=== PATIENT | male | born 1940 | race Caucasian/White ===

== ENCOUNTER → 2016-11-26 | Outpatient (CLI) | payer MEDICARE ==
--- NOTE | 2016-11-26 10:09 | US ---
EXAMINATION TYPE: US venous doppler duplex UE RT DATE OF EXAM: 11/26/2016 9:41 AM COMPARISON: No previous CLINICAL HISTORY: Right hand pain and swelling. SIDE PERFORMED: Right TECHNOLOGIST IMPRESSION: Right Arm: Negative for DVT IMPRESSION: This examination is negative for DVT within the right arm.
== END | disposition home or self-care (01) ==
LOC: RADUSWWP 08:50
PROVIDERS: ATTEND Family Medicine
DX: M79.89 Other specified soft tissue disorders (principal)

== ENCOUNTER → 2016-12-05 | Outpatient (CLI) | payer MEDICARE ==
--- NOTE | 2016-12-10 13:41 | P.ARTDOP ---
Arterial Doppler Upper EXTREMITY ARTERIAL DOPPLER: DATE OF SERVICE: 12/05/2016 Reason for study: Arm swelling. Doppler waveforms: Multiphasic bilaterally throughout. Pulse volume recording: Normal including fingers. Pressure gradients: None. No right to left or segmental pressure gradients Impression: Normal upper extremity arterial Doppler.
== END | disposition home or self-care (01) ==
LOC: RADUSWWP 13:46
PROVIDERS: ATTEND Family Medicine
DX: M79.89 Other specified soft tissue disorders (principal)
CPT/HCPCS: 93923

== ENCOUNTER → 2018-04-26 | Outpatient (CLI) | payer MEDICARE ==
--- NOTE | 2018-04-27 07:42 | CT ---
EXAMINATION TYPE: CT brain wo con DATE OF EXAM: 04/26/2018 COMPARISON: NONE at this location INDICATION: Headaches x 2 weeks. History of traumatic brain injury. DLP: 1198 mGycm, Automated exposure control for dose reduction was used. CONTRAST: None CT of the brain is performed utilizing 3 mm thick sections through the posterior fossa and 3 mm thick sections through the remaining calvarium. Study is performed within 24 hours of arrival to the hosp ital. No abnormal hyperdensity is present to suggest an acute intracranial hemorrhage. There is curvilinear collection along the extra-axial space of the left frontal temporal region. A small chronic subdural hematoma with minimal mass effect on the adjacent brain may be present. This could be subdural hygro ma although density suggests underlying old hemorrhage. This has a depth of approximately 0.7 cm in m aximum depth. No mass lesion is evident. No acute infarcts are evident. Mild chronic appearing white matter changes may be present. Ventricles and sulci are prominent for the patient age. Extra-axial spaces are prominent, more so on the left than the right. No midline shift is evident. No compression of the ventricles is evident. S ignificant mass effect on the adjacent cerebrum from the chronic appearing subdural hematoma is not e vident. Paranasal sinuses and mastoid air cells within the lkand-uf-cnal are clear. IMPRESSIONS: 1. 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 Differential could include subdural hygroma which is considered less likely . 2. Atrophy with mild chronic appearing periventricular white matter ischemic type changes. A Yellow level critical message alert has been initiated for Jacey Woodson MD via the [employer] Critical Results System on 04/27/2018 7:39 AM. This message alert has been sent to Jacey chawla MD via the preferences provided by the clinician for the receipt of Radiology Critical Findings. Message ID [id number].
== END | disposition home or self-care (01) ==
LOC: RADCTMAIN 17:35
PROVIDERS: ATTEND Family Medicine
DX: G31.9 Degenerative disease of nervous system, unspecified (principal); R90.89 Other abnormal findings on diagnostic imaging of central nervous system; Z87.820 Personal history of traumatic brain injury
CPT/HCPCS: 70450

== ENCOUNTER 2018-06-11 19:50 | Emergency (ER) | payer MEDICARE ==
[2018-06-11 20:25] VITALS: TEMP 98.3
[2018-06-11 21:20] LABS: Basophils % (A) 1 %; Eosinophils # (A) 0.1 k/uL (0-0.7); Eosinophils % (A) 2 %; HCT 43.9 % (39.0-53.0); HGB 15.2 gm/dL (13.0-17.5); Lymphocytes # (A) 1.8 k/uL (1.0-4.8); Lymphocytes % (A) 24 %; MCH 32.5 pg (25.0-35.0); MCHC 34.6 g/dL (31.0-37.0); MCV 93.9 fL (80.0-100.0); Mean Platelet Volume 6.4; Monocytes # (A) 0.6 k/uL (0-1.0); Monocytes % (A) 8 %; Neutrophils # (A) 4.9 k/uL (1.3-7.7); Neutrophils % (A) 64 %; Platelet Count 271 k/uL (150-450); RBC 4.67 m/uL (4.30-5.90); RDW 12.9 % (11.5-15.5); WBC 7.6 k/uL (3.8-10.6)
[2018-06-11 21:35] LABS: ALT 26 U/L (21-72); AST 27 U/L (17-59); Albumin 3.4 g/dL (3.5-5.0); Alkaline Phosphatase 65 U/L (38-126); Anion Gap 5 mmol/L; Blood Urea Nitrogen 19 mg/dL (9-20); Calcium 8.8 mg/dL (8.4-10.2); Carbon Dioxide 27 mmol/L (22-30); Chloride 102 mmol/L (98-107); Glucose 134 mg/dL (74-99); Potassium 3.9 mmol/L (3.5-5.1); Sodium 134 mmol/L (137-145); Total Bilirubin 0.6 mg/dL (0.2-1.3); Total Protein 5.6 g/dL (6.3-8.2)
--- NOTE | 2018-06-11 22:34 | CT ---
EXAMINATION TYPE: CT brain cspine wo con DATE OF EXAM: 06/11/2018 COMPARISON: Head CT scan 04/26/2018 HISTORY: fall, confusion, ams CT DLP: 1830 mGycm Automated exposure control for dose reduction was used. TECHNIQUE: CT scan of the head and cervical spine are performed without contrast. FINDINGS: There is widening of the subdural space over the left cerebral hemisphere consistent with acute and chronic subdural hemorrhage. There is mixed density fluid. This measures up to 2 cm in thi ckness. There is slight midline shift. Midline is shifted approximately 8 mm. There is some effacemen t of the occipital horn of the left lateral ventricle. The cervical vertebra have normal alignment. There is degenerative disc space narrowing at C4-5 C5-6 C6-7 with spurring of the endplates. Facet joints are intact. The skull base is intact. 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 There is midline shift of 8 mm. There are spondylotic changes in the cervical spine. No fracture seen. This exam was discussed with Dr. Holguin at 10:30 PM.
[2018-06-11 22:48] VITALS: BP 122/69; PULSE 82; RESP 18
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
[2018-06-11 22:53] LABS: Creatine Kinase 137 U/L (55-170); INR 1.2 (<1.2); Partial Thromboplastin Time 23.3 sec (22.0-30.0); Prothrombin Time 11.4 sec (9.0-12.0)
--- NOTE | 2018-06-11 23:05 | XR ---
EXAMINATION TYPE: XR chest 1V portable DATE OF EXAM: 06/11/2018 COMPARISON: NONE HISTORY: Chest pain TECHNIQUE: Single frontal view of the chest is obtained. FINDINGS: Heart and mediastinum are within normal limits for age. Lungs are clear. There is no sign of pleural effusion or pneumothorax. Costophrenic angles are clear. The bony thorax appears intact. IMPRESSION: No active cardiopulmonary disease.
--- NOTE | 2018-06-11 23:06 | XR ---
EXAMINATION TYPE: XR pelvis AP view DATE OF EXAM: 06/11/2018 COMPARISON: NONE HISTORY: Pain after falling TECHNIQUE: Single view FINDINGS: Pelvic ring is intact. Proximal femurs and hip joints are intact. Sacroiliac joints are int act. IMPRESSION: Normal pelvis
[2018-06-11 23:07] LABS: Creatine Kinase MB 1.2 ng/mL (0.0-2.4); Troponin I <0.012 ng/mL (0.000-0.034)
== END 2018-06-11 23:20 | disposition other institution (70) ==
LOC: EC 19:50
DX: S06.5X9A Traumatic subdural hemorrhage with loss of consciousness of unspecified duration, initial encounter (principal); E78.5 Hyperlipidemia, unspecified; N42.9 Disorder of prostate, unspecified; Z87.891 Personal history of nicotine dependence; Z79.899 Other long term (current) drug therapy; Z88.2 Allergy status to sulfonamides; V19.9XXA Pedal cyclist (driver) (passenger) injured in unspecified traffic accident, initial encounter; Y93.55 Activity, bike riding; Y92.009 Unspecified place in unspecified non-institutional (private) residence as the place of occurrence of the external cause
CPT/HCPCS: 36415; 70450; 71045; 72125; 72170; 80053; 80320; 82550; 82553; 84484; 85025; 85610; 85730; 86850; 86900; 86901; 93005; 99285

== ENCOUNTER 2018-06-30 08:49 | Emergency (ER) | payer MEDICARE ==
[2018-06-30] MEDS ORDERED: SODIUM CHLORIDE 0.9% 1,000 ML IV STA (08:55)
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
[2018-06-30 09:26] LABS: Basophils % (A) 0 %; Eosinophils # (A) 0.2 k/uL (0-0.7); Eosinophils % (A) 1 %; HGB 14.4 gm/dL (13.0-17.5); Lymphocytes # (A) 1.1 k/uL (1.0-4.8); Lymphocytes % (A) 8 %; MCH 31.5 pg (25.0-35.0); MCHC 33.5 g/dL (31.0-37.0); Mean Platelet Volume 6.8; Monocytes # (A) 0.7 k/uL (0-1.0); Monocytes % (A) 5 %; Neutrophils # (A) 11.3 k/uL (1.3-7.7); Neutrophils % (A) 85 %; Platelet Count 279 k/uL (150-450); RBC 4.58 m/uL (4.30-5.90); RDW 12.5 % (11.5-15.5); WBC 13.4 k/uL (3.8-10.6)
[2018-06-30 09:28] VITALS: RESP 18
[2018-06-30 09:35] LABS: ALT 25 U/L (21-72); AST 25 U/L (17-59); Albumin 3.4 g/dL (3.5-5.0); Alkaline Phosphatase 70 U/L (38-126); Amylase 62 U/L (30-110); Anion Gap 8 mmol/L; Blood Urea Nitrogen 18 mg/dL (9-20); Calcium 8.6 mg/dL (8.4-10.2); Carbon Dioxide 26 mmol/L (22-30); Chloride 102 mmol/L (98-107); Glucose 99 mg/dL (74-99); INR 1.2 (<1.2); Lipase 121 U/L (23-300); Magnesium 1.9 mg/dL (1.6-2.3); Potassium 4.3 mmol/L (3.5-5.1); Prothrombin Time 11.2 sec (9.0-12.0); Sodium 136 mmol/L (137-145); Total Bilirubin 1.1 mg/dL (0.2-1.3); Total Protein 5.6 g/dL (6.3-8.2)
[2018-06-30 09:48] LABS: Creatine Kinase 23 U/L (55-170)
[2018-06-30 10:01] LABS: Creatine Kinase MB 0.4 ng/mL (0.0-2.4); Troponin I <0.012 ng/mL (0.000-0.034)
--- NOTE | 2018-06-30 10:09 | XR ---
EXAMINATION TYPE: XR chest 2V DATE OF EXAM: 06/30/2018 COMPARISON: 06/11/2018 HISTORY: 78-year-old male syncope TECHNIQUE: AP and lateral views FINDINGS: Heart upper limits of normal in size. Aorta and bony vasculature are within normal limits. No consoli dation or pleural effusion. IMPRESSION: Heart upper limits of normal in size. No acute process seen.
--- NOTE | 2018-06-30 10:13 | CT ---
EXAMINATION TYPE: CT brain wo con DATE OF EXAM: 06/30/2018 HISTORY: Syncopal episode today. History of recent subdural hematoma CT DLP: 1121 mGycm. Automated Exposure Control for Dose Reduction was Utilized. TECHNIQUE: CT scan of the head is performed without contrast. COMPARISON: CT brain June 11, 2018 and older study April 26, 2018. FINDINGS: There is interval surgery with new left frontal craniotomy changes noted. There is new pneumocephalus presumed related to surgery. There is persistent heterogeneous extra-axial fluid colle ction with linear hyperdensity causing mass effect on the frontal lobe. There is interval improvement along the posterior aspect. There is persistent midline shift at level of septum pellucidum measured up to 5 mm axial image 25 felt slightly diminished from prior. Frontal horns and third ventricle are slightly more prominent versus most recent prior. There is background mild to moderate diffuse cereb ral atrophy most prominent over right frontal lobe redemonstrated. Pneumocephalus extends to right of midline anteriorly axial image 18. IMPRESSION: Interval left-sided surgery. Persistent complex extra-axial hypodensity with linear hyper density likely reflects combination of residual or recurrent acute on chronic hemorrhage and less lik thony surgical material. New pneumocephalus presumed postsurgical. Interval slight improvement in right -sided mediastinal shift. Background mild to moderate diffuse cerebral atrophy. New mild to minimal h ydrocephalus. Case discussed with ordering ER physician via telephone at time of dictation.
[2018-06-30] MEDS ORDERED: ACETAMINOPHEN TAB 500 MG TAB PO STA (11:14)
[2018-06-30 11:36] VITALS: BP 128/76; PULSE 79; TEMP 100.5
== END 2018-06-30 11:31 | disposition other institution (70) ==
LOC: EC 08:49
DX: S06.5X9D Traumatic subdural hemorrhage with loss of consciousness of unspecified duration, subsequent encounter (principal); R40.2412 Glasgow coma scale score 13-15, at arrival to emergency department; E78.5 Hyperlipidemia, unspecified; N42.9 Disorder of prostate, unspecified; Z87.891 Personal history of nicotine dependence; Z79.899 Other long term (current) drug therapy; Z88.2 Allergy status to sulfonamides; V18.9XXD Unspecified pedal cyclist injured in noncollision transport accident in traffic accident, subsequent encounter
CPT/HCPCS: 36415; 70450; 71046; 80053; 82150; 82550; 82553; 83690; 83735; 84484; 85025; 85610; 85730; 93005; 99291

== ENCOUNTER → 2018-07-20 | Outpatient (CLI) | payer MEDICARE ==
--- NOTE | 2018-07-21 07:50 | CT ---
EXAMINATION TYPE: CT brain wo con DATE OF EXAM: 07/20/2018 COMPARISON: 06/30/2018 INDICATION: Follow up scan per patient DLP: 1219 mGycm, Automated exposure control for dose reduction was used. CONTRAST: None CT of the brain is performed utilizing 3 mm thick sections through the posterior fossa and 3 mm thick sections through the remaining calvarium. Study is performed within 24 hours of arrival to the hosp ital. There is a small crescent of subdural hyperdensity of the larger area of hypodensity compatible with resolving subdural hematoma below the patient's left parietal craniotomy. New interval hemorrhage is not identified. Maximum depth which has some mass effect on the adjacent brain is 1.8 cm. This is dim inished from the 2.2 cm. No mass lesion is evident. No midline shift is evident. There is effacement of sulci along the left p arietal lobe adjacent to the extradural collection. Remaining sulci are normal. No effacement of the lateral ventricles is evident. Third ventricle and fourth ventricle are midline. No acute infarcts are evident. Paranasal sinuses and mastoid air cells within the [id number] are clear. IMPRESSIONS: 1. Residual subdural hematoma left parietal region. There appears to be normal maturation with slig ht diminished size compared to June 30, 2018. 2. Mass effect remains on the left cerebral hemisphere without midline shift or ventricular compressi on.
== END | disposition home or self-care (01) ==
LOC: RADCTMAIN 17:04
PROVIDERS: ATTEND Neurological Surgery
DX: S06.5X9A Traumatic subdural hemorrhage with loss of consciousness of unspecified duration, initial encounter (principal); G93.89 Other specified disorders of brain
CPT/HCPCS: 70450

== ENCOUNTER → 2018-12-18 | Outpatient (CLI) | payer MEDICARE ==
--- NOTE | 2018-12-20 11:24 | MR ---
EXAMINATION TYPE: MR brain wo/w con DATE OF EXAM: 12/18/2018 COMPARISON: Correlation CT 07/20/2018 HISTORY: 78-year-old male with nonspecified convulsions, seizures. TECHNIQUE: Multiplanar, multisequence images of the brain and brainstem were acquired before and aft er administration of 10 mL IV Gadavist. Diffusion weighted imaging is performed. FINDINGS: Left frontal and left frontoparietal skylar holes. There is moderate generalized cerebral cortical atrophy. Residual subdural hematoma along the entire left lateral convexity extending from front to back. This shows significant interval decrease in size now measuring 8 mm thick versus 1.8 cm on 07/20/2018. Thi s shows low to intermediate T1-weighted signal and mixed linear dark or bright T2-weighted signal. Small foci of restricted diffusion within the extra-axial collection. There is also some gyriform low T2 signal along the left frontal lobe suggesting hemosiderosis. Persistent mild mass effect onto the left cerebral hemisphere causes some asymmetric gyral crowding b ut overall mass effect is improved from 07/20/2018 CT. No midline shift, herniation, or effacement of basal cisterns. Otherwise, no suspicious restricted di ffusion within the brain parenchyma itself. No hydrocephalus. The right vertebral artery flow-void is dominant. The left vertebral artery may terminate as a claim representative ior inferior cerebellar artery. 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 Symmetric and preserved hippocampal volume. T2/FLAIR weighted sequences show mild scattered bright white matter change in the periventricular and subcortical regions of both cerebral hemispheres, numbering approximately 5-10 on the left and 5 on the right. There is partially empty sella. Otherwise, midline structures demonstrate normal morphology. 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 Post contrast images demonstrate some reactive dural enhancement along the left convexity but otherwi se no evidence of pathologic enhancement. Dural venous sinuses are patent. Mild mucosal thickening ethmoid air cells and maxillary sinuses. Globes are intact. IMPRESSION: 1. The patient's subdural hematoma along the left lateral convexity shows decrease in size from 2017 now measuring 8 mm thick versus 1.8 cm, previously. There has also been decrease in the amount o f mass effect onto the underlying cerebral hemisphere. No midline shift or herniation. 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 2. The hematoma itself has mixed signal intensity. The presence of bright T2 signal is favored to rep resent a component of late subacute blood products. As no interval imaging is available from the sandra ent's 07/20/2018 CT, a recurrent, more acute subdural hematoma is difficult to exclude. Consider follo w-up CT to assess overall density of the hematoma and exclude superimposed acute component. 3. Otherwise, there is moderate atrophy and mild changes of chronic small vessel ischemic disease. No other acute intracranial abnormality seen. 4. Dominant right vertebral artery. The left vertebral artery may terminate as a PICA. The basilar ar memo is relatively small in caliber which is of questionable clinical significance but may potentiall y contribute to symptoms of vertebrobasilar insufficiency.
== END ==
LOC: RADMRIMAIN 10:47
PROVIDERS: ATTEND Psychiatry & Neurology Neurology
DX: S06.5X9A Traumatic subdural hemorrhage with loss of consciousness of unspecified duration, initial encounter (principal); G31.9 Degenerative disease of nervous system, unspecified; N28.9 Disorder of kidney and ureter, unspecified; Z01.812 Encounter for preprocedural laboratory examination
CPT/HCPCS: 82565; 70553; 36415; A9585

== ENCOUNTER → 2019-01-10 | Outpatient (CLI) | payer MEDICARE ==
--- NOTE | 2019-01-10 16:40 | CT ---
EXAMINATION TYPE: CT brain wo con DATE OF EXAM: 01/10/2019 COMPARISON: 07/20/2018 INDICATION: Nontraumatic subdural hemorrhage, possible seizure. Follow up study. DLP: 1150 mGycm, Automated exposure control for dose reduction was used. CONTRAST: None CT of the brain is performed utilizing 3 mm thick sections through the posterior fossa and 3 mm thick sections through the remaining calvarium. Study is performed within 24 hours of arrival to the hosp ital. No abnormal hyperdensity is present to suggest an acute intracranial hemorrhage. There appears to be a subacute subdural hematoma along the left. This has a maximum depth of 0.4 cm. No midline shift is evident. No subfalcine herniation is evident. No mass lesion is evident. No acute infarcts are evident. Ventricles and sulci are appropriate for the patient age. Paranasal sinuses and mastoid air cells within the fujet-tx-wraj are clear. IMPRESSIONS: 1. Significantly diminished left parietal subdural hematoma with small residual remaining.
== END | disposition home or self-care (01) ==
LOC: RADCTMAIN 11:06
PROVIDERS: ATTEND Psychiatry & Neurology Neurology
DX: I62.00 Nontraumatic subdural hemorrhage, unspecified (principal)
CPT/HCPCS: 70450

== ENCOUNTER → 2020-12-07 | Outpatient (CLI) | payer MEDICARE ==
[2020-12-07 08:34] LABS: INR 1.2 (<1.2); Prothrombin Time 12.3 sec (9.0-12.0)
[2020-12-07 08:36] LABS: Basophils % (A) 1 %; Eosinophils # (A) 0.2 k/uL (0-0.7); Eosinophils % (A) 2 %; HCT 53.4 % (39.0-53.0); HGB 17.2 gm/dL (13.0-17.5); Lymphocytes # (A) 1.8 k/uL (1.0-4.8); Lymphocytes % (A) 30 %; MCH 32.4 pg (25.0-35.0); MCHC 32.3 g/dL (31.0-37.0); MCV 100.4 fL (80.0-100.0); Mean Platelet Volume 7.3; Monocytes # (A) 0.4 k/uL (0-1.0); Monocytes % (A) 6 %; Neutrophils # (A) 3.5 k/uL (1.3-7.7); Neutrophils % (A) 58 %; Platelet Count 217 k/uL (150-450); RBC 5.32 m/uL (4.30-5.90)
[2020-12-07 08:46] LABS: Calcium 9.5 mg/dL (8.4-10.2); Potassium 4.9 mmol/L (3.5-5.1); Total Protein 6.4 g/dL (6.3-8.2)
== END | disposition home or self-care (01) ==
LOC: LABPAT 07:51
PROVIDERS: ATTEND Orthopaedic Surgery
DX: Z01.818 Encounter for other preprocedural examination (principal); M17.12 Unilateral primary osteoarthritis, left knee; Z01.812 Encounter for preprocedural laboratory examination
CPT/HCPCS: 36415; 80053; 85025; 85610; 87070; 93005

== ENCOUNTER 2020-12-25 06:15 | Day surgery (SDC) | payer MEDICARE ==
[2020-12-19 13:39] VITALS: BMI 23.1
--- NOTE | 2020-12-24 09:07 | HP ---
HISTORY AND PHYSICAL CHIEF COMPLAINT: Left knee pain. HISTORY OF PRESENT ILLNESS: The patient is a 80-year-old retired male who presents with left knee pain for the past several years, worsening recently. He notes lateral pain that increases with walking and getting up from a seated position. It bothers him daily. He rates his pain 6/10 intermittently. He has tried medications in addition to previous injections with only partial temporary relief. PAST MEDICAL HISTORY: Significant for arthritis and hypercholesterolemia along with chronic low back pain. PAST SURGICAL HISTORY: Significant for appendectomy, hernia repair, and tonsillectomy. CURRENT MEDICATIONS: 1. Keppra. 2. Simvastatin. ALLERGIES: He has allergies to SULFA. FAMILY HISTORY: Significant for heart disease. SOCIAL HISTORY: Significant for previous tobacco use. REVIEW OF SYSTEMS: Sixteen-point review of systems otherwise reviewed and is noncontributory. PHYSICAL EXAMINATION: On examination, the patient is approximately 6 feet 1 inch, 175 pounds of mesomorphic habitus. HEENT exam is nonfocal. Neck is supple. He has painless passive motion of his left hip. Straight leg raise is negative. Active motion left knee -12 to 110 degrees of flexion. He has a mild effusion. He is tender about the lateral joint line. Collaterals are stable, Mariam is negative, Alissa's is equivocal. He has genu valgum alignment. His distal neurovascular exam appears intact in the left lower extremity. Previous x-rays of the left knee obtained in the office show severe lateral compartment narrowing with subchondral sclerosis and joint space narrowing. There is also osteophyte formation. 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 RECOMMENDATIONS: I talked to the patient at length regarding his condition and treatment options. At this point, he remains quite symptomatic and limited despite previous conservative measures. After thorough discussion, he opts to proceed with surgery. We will plan to proceed with left total knee arthroplasty. We will institute DVT prophylaxis postoperatively. MMODL / IJN: [id number] /
[~2020-12-25 06:15] MED LIST: ACETAMINOPHEN TAB 500 MG TAB PO PRN; DEXAMETHASONE SOD PHOSPHATE 4 MG/ML 1 ML VIAL IV ONE; MELOXICAM 7.5 MG TAB PO PRN; MIDAZOLAM 2 MG/2 ML VIAL IV PRN; ONDANSETRON 4 MG/2 ML VIAL IVP ONE; ROPIVACAINE/EPI/CLONIDINE/KET 50 ML SYRINGE MISCELLANE PRN; TRANEXAMIC ACID 1,000 MG in SODIUM CHLORIDE 0.9% 100 ML IVPB PRN
[2020-12-25] MEDS: LACTATED RINGERS 1,000 ML IV SCH (06:52)
[2020-12-25] MEDS ORDERED: HYDROmorphone 0.5 MG/0.5 ML SYRINGE IVP PRN ×2 (07:00→09:55)
[2020-12-25] MEDS ORDERED: fentaNYL (PF) 50 MCG/ML 2 ML AMP IVP ONE (07:10)
[2020-12-25] MEDS ORDERED: MIDAZOLAM 2 MG/2 ML VIAL IVP ONE (07:10)
[2020-12-25] MEDS ORDERED: ROPIVACAINE 0.2%-NS ON-Q PUMP 1,090 MG, EMPTY PAIN BALL 1 EACH MISCELLANE PRN (07:24)
--- NOTE | 2020-12-25 07:26 | P.ANPRN ---
Procedure Note - Anesthesia - Nerve Block Performed Left Adductor Canal Infusion Time Out Performed: Yes Date of Procedure: 12/25/20 Procedure Start Time: 07:09 Procedure Stop Time: 07:17 Location of Patient: PreOp Indication: Requested by Surgeon Specifically requested for management of pain by DrLeeann: Kory Alford Sedation Type: Sedate with meaningful contact maintained Preparation: Sterile Prep, Sterile Dressing Position: Supine Catheter: Indwelling Needle Types: Pajunk Needle Gauge: 20 Ultrasound used to visualize needle placement: Yes Ultrasound used to observe medication spread: Yes Injectate: 0.5% Ropivacaine (see comment for volume) (20 ml) Blood Aspirated: No Pain Paresthesia on Injection Noted: No Resistance on Injection: Normal Image Stored and Saved: Yes Events: Uneventful and Well Tolerated
[2020-12-25] MEDS ORDERED: PROPOFOL 10 MG/ML 20 ML VIAL IV ONE (07:46)
[2020-12-25] MEDS ORDERED: SODIUM CHLORIDE 0.9% 100 ML BAG ONE (07:46)
[2020-12-25] MEDS ORDERED: TRANEXAMIC ACID 1,000 MG/10 ML VIAL ONE (07:46)
[2020-12-25] MEDS ORDERED: fentaNYL (PF) 50 MCG/ML 2 ML AMP ONE (07:46)
[2020-12-25] MEDS ORDERED: MIDAZOLAM 2 MG/2 ML VIAL ONE (07:46)
[2020-12-25] MEDS ORDERED: HYDROmorphone 1 MG/ML 1 ML SYRINGE IVP PRN (09:55)
[2020-12-25] MEDS ORDERED: HYDROcodone/APAP 5-325MG 1 EACH TAB PO PRN (09:55)
[2020-12-25] MEDS ORDERED: ONDANSETRON 4 MG/2 ML VIAL IVP PRN (09:55)
[2020-12-25] MEDS ORDERED: NALOXONE 0.4 MG/ML 1 ML VIAL IV PRN (09:55)
[2020-12-25] MEDS ORDERED: hydrOXYzine pamoate 25 MG CAP PO PRN (09:55)
--- NOTE | 2020-12-25 09:55 | P.OP ---
Date of Procedure: 12/25/20 Preoperative Diagnosis: Left knee severe tricompartmental osteoarthrosis Postoperative Diagnosis: Same Procedure(s) Performed: Left total knee arthroplastycruciate retainingcemented Implants: Depuy to size 7 cemented femoral component, size 7 cemented tibial component, 9 mm articular surface, 35 mm cemented patellar component. This was a cruciate retaining implant. Anesthesia: regional, local, spinal Surgeon: Kory Alford Pathology: other (Bone fragments) Condition: stable Disposition: PACU Indications for Procedure: The patient's 80-year-old male who presents with persistent/progressive left knee pain secondary osteoarthrosis despite conservative treatment. A discussion of the risks and benefits of operative intervention versus continued conservative measures was made with patient. He opted to proceed with surgery. Operative risks to include infection, neurovascular injury, development of blood clots, possible component loosening, possible component failure need for subsequent procedures was discussed. Informed consent was obtained. Operative Findings: As below Description of Procedure: The patient was brought to the operating room, and after induction of spinal anesthesia the left lower extremity was prepped and draped in a normal fashion. The tourniquet was inflated to 270 mmHg. A longitudinal incision extending 3 finger breaths above the superior pole of the patella extending to the medial aspect the tibial tubercle was then made. The skin and subcutaneous tissues were divided sharply. Electrocautery was used for hemostasis. A medial parapatellar arthrotomy was then performed. The medial soft tissues to include the superficial and deep portions of the medial collateral ligament as well as the medial hamstring tendons were elevated subperiosteally. The proximal medial tibia osteophytes were carefully removed. The patella was everted. The knee was flexed. A portion of the retropatellar fat pad was excised sharply. The anterior cruciate ligament was sacrificed. A starting hole was made in the distal femur 1 cm anterior to the posterior cruciate origin. An intramedullary femoral guide was gently inserted planning on 5 valgus distal cut with 9 mm distal resection. The cutting block was pinned in place. The distal cut was then made. The posterior referencing sizing guide was utilized. 3 of external rotation was built into the system and verified off the trans- epicondylar axis and the posterior condyles. I felt size 7 was most appropriate. The cutting block was pinned in place. The anterior, posterior, and chamfer cuts were then made. The bone fragments were removed. A sulcus cut was then made with the appropriate guide. The trial size 7 femoral component was then placed and was fully seated. There was good anterior to posterior and medial to lateral fit. The distal peg holes were then drilled. The trial component was then removed. Attention was then paid towards preparing the proximal tibia. An extra medullary guide was utilized in line with the tibial shaft and second metatarsal distally. A 7 posterior slope was planned. I planned on 2 mm resection from the medial compartment. The cutting block was pinned in place. The proximal tibial cut was then made. The bone was removed in one fragment. The remnants of the medial and lateral menisci were excised the capsule junction with electrocautery. The tibia sized most appropriately at size 7. The posterior osteophytes off the distal femur were carefully removed with a curved osteotome. The trial tibial and femoral components were placed along with a 9 millimeters articular surface. I was able to obtain full flexion and extension with good stability with varus and valgus stress. After several flexion and extension cycles, the tibial rotation was marked with electrocautery in line with the medial one third of the tibial tubercle. Attention was then paid towards preparing the patella. A patella reamer was utilized taking this down to 14 mm of bone stock. A good flush cut was made. The patella sized most appropriately at 35 millimeters. The peg holes were then drilled. The trial component was placed. The knee was taken through a range of motion. I had good patellofemoral tracking with no hands technique. The trial components were then removed. The tibia was prepared in the appropriate rotation with appropriate drill and keel punch. The flexion and extension gaps were checked and felt to be symmetric. The posterior soft tissues were injected with ropivacaine. The bony surfaces were prepared with pulsatile lavage and dried. The deep tibial component was then cemented in place and was fully seated. Excess cement was removed. The femoral component was cemented in place and was fully seated. Again excess cement was removed. The trial 9 millimeters surface was then inserted in the knee was put in full extension. The patella component was cemented in place. After the cement had sufficiently hardened, the knee was again taken through a range of motion. Again there was good stability in flexion and extension with varus and valgus stress. The trial articular surface was then removed. The final articular surface was placed and was impacted. Care was taken to avoid any soft tissue interposition. Pulsatile lavage was again utilized. The tourniquet was deflated with approximately 60 minutes total tourniquet time. There was minimal drainage therefore a deep drain was not placed. The medial parapatellar arthrotomy was then closed with #2 Ethibond suture. The subcutaneous tissues were reapproximated interrupted 2-0 Vicryl sutures. The skin was reapproximated with 3-0 subarticular strata fix suture. Skin tape and adhesive was applied. A sterile dressing was applied. The patient was then awoken from sedation and transferred to recovery room in good condition. Blood loss was estimated at 50 milliliters. No complications were incurred. Sponge and needle counts were correct at the end the case.
--- NOTE | 2020-12-25 10:34 | XR ---
EXAMINATION TYPE: XR knee limited LT DATE OF EXAM: 12/25/2020 CLINICAL HISTORY: Postoperative evaluation Two views of the left knee are submitted. Identified are changes of total knee arthroplasty with fem oral and tibial components appearing well seated. Postsurgical soft tissue changes are noted. Align ment is anatomic.
--- NOTE | 2020-12-25 13:21 | P.CONS ---
History of Present Illness - Reason for Consult Consult date: 12/25/20 - History of Present Illness Adi Carter, is a 80-year-old male patient of Dr. post, who was admitted to [facility] by Dr. Alford, for advanced osteoarthritis of the left knee patient underwent left total knee arthroplasty today he was admitted to the surgical floor post surgery medical consultation was requested for management while hospitalized. Patient has a known history of seizure disorder, benign prostatic hypertrophy, hyperlipidemia, and history of Rajendra polymyalgia rheumatica. On review of systems patient is alert and oriented 3 in no apparent distress he denies any fever or chills no headache or dizziness no chest pain no shortness of breath no cough no nausea or vomiting no abdominal pain no diarrhea no blood in the stools no burning with urination no frequency or urgency and no hematuria. Past Medical History Past Medical History: Eye Disorder, Hyperlipidemia, Prostate Disorder Additional Past Medical History / Comment(s): hx of brain bleed, no hx of seizured, glaucoma History of Any Multi-Drug Resistant Organisms: None Reported Past Surgical History: Appendectomy, Hernia Repair, Tonsillectomy Additional Past Surgical History / Comment(s): sx for subdural hematoma [facility] 2017, carlos cataracts, epidural for pain in past Past Anesthesia/Blood Transfusion Reactions: No Reported Reaction Additional Past Alcohol Use History / Comment(s): smoking: started 1958 stopped 1965 - Past Family History Mother Family Medical History: No Reported History Father Family Medical History: AICD/Pacemaker, Congestive Heart Failure (CHF), Coronary Artery Disease (CAD) Additional Family Medical History / Comment(s): at 58 in 1973 from chf Medications and Allergies Home Medications Medication Instructions Recorded Confirmed Type Latanoprost Ophth [Xalatan 0.005%] 1 drops BOTH EYES HS 06/11/18 12/25/20 History Simvastatin [Zocor] 20 mg PO HS 06/30/18 12/25/20 History Vit C/E/Zn/Coppr/Lutein/Zeaxan 1 cap PO BID 06/30/18 12/25/20 History [Preservision Areds 2 Softgel] levETIRAcetam [Keppra] 500 mg PO Q12HR 06/30/18 12/25/20 History Cholecalciferol (Vitamin D3) 125 mcg PO DAILY 12/19/20 12/25/20 History [Vitamin D3 (5000 Iu)] Framingham-3 Fatty Acids/Fish Oil [Fish 1 each PO DAILY 12/19/20 12/25/20 History Oil 1,000 mg Softgel] Allergies Allergy/AdvReac Type Severity Reaction Status Date / Time Sulfa (Sulfonamide Allergy Rash/Hives Verified 12/25/20 06:38 Antibiotics) Physical Exam Vitals: Vital Signs Temp Pulse Resp BP Pulse Ox 12/25/20 10:30 63 16 93/52 97 12/25/20 10:15 73 16 99/52 96 12/25/20 10:02 71 16 101/55 96 12/25/20 09:51 96.8 F L 72 16 99/56 95 12/25/20 07:33 64 16 126/69 97 12/25/20 06:45 97.5 F L 68 16 145/78 98 Intake and Output 12/24/20 12/25/20 12/25/20 22:59 06:59 14:59 Intake Total 400 700 Output Total 50 Balance 400 650 Intake: IV 400 700 Output: Estimated Blood Loss 50 Other: Weight 79.379 kg In general patient is alert and oriented 3 in no apparent distress HEENT head normocephalic and atraumatic Neck is supple no JVD no goiter no lymphadenopathy Chest exam reveals crackles in both lung bases no wheezing Cardiac exam reveals regular heart sounds S1 and S2 no gallops no murmurs Abdomen is soft nontender no organomegaly with normal bowel sounds Extremity exam reveals no edema no cyanosis or clubbing Neurological examination reveals, no gross focal neurological deficits Assessment and Plan Plan: 1. Advanced osteoarthritis laft knee, status post left total knee arthroplasty today by Dr Alford 2. Underlying history of seizure disorder maintained on Keppra 3. Underlying history of hyperlipidemia maintained on Zocor 4. Underlying history of benign prostatic hypertrophy 5. Underlying history of polymyalgia rheumatica At this time home medications reviewed and reordered DVT prophylaxis and pain management as per orthopedic protocol patient was started on oral Xarelto Will follow during this admission for medical management
[2020-12-25] MEDS: VIT A,C & E-LUTEIN-MINERALS 1 EACH TAB PO SCH (19:54)
[2020-12-25] MEDS: levETIRAcetam 500 MG TAB PO SCH (19:54)
[2020-12-25] MEDS ORDERED: LATANOPROST 0.005% OPHTH DROPS 2.5 ML BTL BOTH EYES SCH (21:00)
[2020-12-25] MEDS ORDERED: ATORVASTATIN 10 MG TAB PO SCH (21:00)
--- NOTE | 2020-12-26 06:36 | P.PN ---
Progress Note - Text Progress Note Date: 12/26/20 Patient was seen at bedside at 620 AM. Patient is postop day 1 from rleft total knee replacement with adductor canal catheter placed for pain . Ropivacaine 0.2% infusion running at 8 ml per hour. VAS score is 4. Patient denies side effects. Lower extremity sensation and motor function is intact. Patient has ambulated. Dressing clean dry and intact over catheter site
[2020-12-26] MEDS: LACTATED RINGERS 1,000 ML IV SCH (06:56)
[2020-12-26 07:26] VITALS: RESP 18
[2020-12-26] MEDS: levETIRAcetam 500 MG TAB PO SCH (08:11)
[2020-12-26] MEDS: VIT A,C & E-LUTEIN-MINERALS 1 EACH TAB PO SCH (08:11)
[2020-12-26] MEDS: HYDROcodone/APAP 7.5-325MG 1 EACH TAB PO PRN ×2 (08:11→13:48)
[2020-12-26] MEDS ORDERED: NON FORMULARY DRUG (Omega-3 Fatty Acids/Fish Oil [Fish Oil 1,000 Mg Softgel] 1 EACH Capsul PO SCH (09:00)
[2020-12-26] MEDS ORDERED: PSYLLIUM HUSK 100% 6 GM PACKET PO SCH (09:00)
[2020-12-26] MEDS ORDERED: CHOLECALCIFEROL 25 MCG (1000 IU) TABLET PO SCH (09:00)
[2020-12-26] MEDS ORDERED: RIVAROXABAN 10 MG TAB PO SCH (09:00)
[2020-12-26 09:10] LABS: Basophils # (A) 0.03 X 10*3/uL (0.00-0.10); Basophils % (A) 0.2 %; Eosinophils # (A) 0.06 X 10*3/uL (0.04-0.35); Eosinophils % (A) 0.4 %; HCT 44.5 % (39.6-50.0); HGB 15.2 g/dL (13.0-17.0); Lymphocytes # (A) 2.17 X 10*3/uL (0.90-5.00); Lymphocytes % (A) 16.2 %; MCH 32.3 pg (27.0-32.0); MCHC 34.2 g/dL (32.0-37.0); MCV 94.7 fL (80.0-97.0); Mean Platelet Volume 11.6 fL (9.5-12.2); Monocytes # (A) 1.19 X 10*3/uL (0.20-1.00); Monocytes % (A) 8.9 %; Neutrophils # (A) 9.86 X 10*3/uL (1.80-7.70); Neutrophils % (A) 73.9 %; Platelet Count 239 X 10*3/uL (140-440); RDW 12.4 % (11.5-14.5); WBC 13.36 X 10*3/uL (4.50-10.00)
[2020-12-26 10:04] LABS: African American GFR (CKD) 60.1 (60.0-200.0); Albumin 3.9 g/dL (3.80-4.90); Albumin/Globulin Ratio 2.79 (1.60-3.17); Anion Gap 9.3 mmol/L (4.00-12.00); BUN/Creat Ratio 18.46 Ratio (12.00-20.00); Carbon Dioxide 27.7 mmol/L (21.6-31.8); Globulin 1.4 g/dL (1.6-3.3); Non-African American GFR(CKD) 51.9 (60.0-200.0); Potassium 4.3 mmol/L (3.5-5.5); Total Bilirubin 0.9 mg/dL (0.2-1.2); Total Protein 5.3 g/dL (6.2-8.2)
--- NOTE | 2020-12-26 12:10 | P.PN ---
Subjective Progress Note Date: 12/26/20 sujatha Carter, is a 80-year-old male patient of Dr. post, who was admitted to [facility] by Dr. Alford, for advanced osteoarthritis of the left knee patient underwent left total knee arthroplasty today he was admitted to the surgical floor post surgery medical consultation was requested for management while hospitalized. Patient has a known history of seizure disorder, benign prostatic hypertrophy, hyperlipidemia, and history of Rajendra polymyalgia rheumatica. On review of systems patient is alert and oriented 3 in no apparent distress he denies any fever or chills no headache or dizziness no chest pain no shortness of breath no cough no nausea or vomiting no abdominal pain no diarrhea no blood in the stools no burning with urination no frequency or urgency and no hematuria. On 12/26/2020 Patient is alert and oriented x 3. Currently resting comfortably in beds. Patient reports that he felt a pop with movement to the knee yesterday per nursing staff Dr. Alford notified and will be into see him today. The pain has since improved. Patient has been up urinating. Awaiting surgical evaluation. Labs unremarkable. Patient has remained afebrile. At this time patient denies chest pain or shortness of breath. Patient denies nausea vomiting or diarrhea. Patient denies any urinary burning or frequency. Objective - Vital Signs Vital signs: Vital Signs Temp 98.0 F 12/26/20 07:26 Pulse 64 12/26/20 07:26 Resp 18 12/26/20 07:26 BP 121/67 12/26/20 07:26 Pulse Ox 97 12/26/20 07:26 Intake & Output 12/25/20 12/26/20 12/26/20 18:59 06:59 18:59 Intake Total 1232 50 Output Total 50 Balance 1182 50 Weight 79.379 kg Intake: IV 700 50 ceFAZolin 2 gm In Sodium 50 Chloride 0.9% 50 ml @ 100 mls/hr IVPB Q8HR [facility] Rx# :[id number] Oral 532 Output: Estimated Blood Loss 50 Other: # Voids 1 2 # Bowel Movements 1 - Exam Head normocephalic Neck supple Lungs clear to auscultation bilaterally no wheezing or crackles Heart regular rate and rhythm S1-S2, no rub or gallop Abdomen is soft nontender nondistended positive bowel sounds no hepatosplenomegaly Extremities no edema. Left knee dressing is clean dry and intact Neuro alert and orientated to 3 - Labs CBC & Chem 7: 12/26/20 06:36 12/26/20 06:36 Labs: Abnormal Lab Results - Last 24 Hours (Table) 12/26/20 12/26/20 Range/Units 06:36 06:36 WBC 13.36 H (4.50-10.00) X 10*3/uL MCH 32.3 H (27.0-32.0) pg Immature Gran # 0.05 H (0.00-0.04) X 10*3/uL Neutrophils # 9.86 H (1.80-7.70) X 10*3/uL Monocytes # 1.19 H (0.20-1.00) X 10*3/uL Est GFR (CKD-EPI)NonAf 51.9 L (60.0-200.0) Total Protein 5.3 L (6.2-8.2) g/dL Globulin 1.4 L (1.6-3.3) g/dL Assessment and Plan Plan: 1. Advanced osteoarthritis laft knee, status post left total knee arthroplasty today by Dr Alford 2. Underlying history of seizure disorder maintained on Keppra 3. Underlying history of hyperlipidemia maintained on Zocor 4. Underlying history of benign prostatic hypertrophy 5. Underlying history of polymyalgia rheumatica At this time home medications reviewed and reordered DVT prophylaxis and pain management as per orthopedic protocol patient was started on oral Xarelto Awaiting reevaluation per surgical services
--- NOTE | 2020-12-26 12:47 | P.PN ---
Progress Note - Text Progress Note Date: 12/26/20 Patient notes moderate left knee pain, however has done well with therapy. Afebrile with stable vital signs Left knee incision clean/try/intact Homans negative left lower extremity Distal neurovascular exam intact left lower extremity Assessment: Status post left total knee arthroplasty Plan: Discharge home today 2 weeks Xarelto 2 weeks Visiting nurse and therapy as prescribed
--- NOTE | 2020-12-26 12:53 | P.DS ---
Providers Date of admission: 12/25/2020 Expected date of discharge: 12/26/20 Attending physician: Kory Alford Consults: 12/25/20 09:55 Consult Physician Routine Consulting Provider: Edison Dias Consult Reason/Comments: medical management Do you want consulting provider notified?: Yes Primary care physician: Jacey Woodson Hospital Course: The patient underwent left total knee arthroplasty without complication. Postoperatively he had good return of bowel and bladder function. Upon discharge he was afebrile with stable vital signs. His incision was clean dry and intact. He was seen by physical therapy and cleared by them. Assessment: Status post left total knee arthroplastydoing well Procedures: Left total knee arthroplasty Patient Condition at Discharge: Good Plan - Discharge Summary Discharge Rx Participant: No New Discharge Prescriptions: New HYDROcodone/APAP 7.5-325MG [[place] 7.5-325] 1 tab PO Q4H PRN 7 Days #40 tab PRN Reason: Pain Rivaroxaban [Xarelto] 10 mg PO DAILY #14 tab No Action Latanoprost Ophth [Xalatan 0.005%] 1 drops BOTH EYES HS Simvastatin [Zocor] 20 mg PO HS Vit C/E/Zn/Coppr/Lutein/Zeaxan [Preservision Areds 2 Softgel] 1 cap PO BID levETIRAcetam [Keppra] 500 mg PO Q12HR Cholecalciferol (Vitamin D3) [Vitamin D3 (5000 Iu)] 125 mcg PO DAILY [place]-3 Fatty Acids/Fish Oil [Fish Oil 1,000 mg Softgel] 1 each PO DAILY Discharge Medication List Latanoprost Ophth [Xalatan 0.005%] 1 drops BOTH EYES HS 06/11/18 [History] Simvastatin [Zocor] 20 mg PO HS 06/30/18 [History] Vit C/E/Zn/Coppr/Lutein/Zeaxan [Preservision Areds 2 Softgel] 1 cap PO BID 06/30/18 [History] levETIRAcetam [Keppra] 500 mg PO Q12HR 06/30/18 [History] Cholecalciferol (Vitamin D3) [Vitamin D3 (5000 Iu)] 125 mcg PO DAILY 12/19/20 [History] [place]-3 Fatty Acids/Fish Oil [Fish Oil 1,000 mg Softgel] 1 each PO DAILY 12/19/20 [History] HYDROcodone/APAP 7.5-325MG [[place] 7.5-325] 1 tab PO Q4H PRN 7 Days #40 tab 12/26/20 [Rx] Rivaroxaban [Xarelto] 10 mg PO DAILY #14 tab 12/26/20 [Rx] Follow up Appointment(s)/Referral(s): [facility] [NON-STAFF] - As Needed (Continuous Passive Motion knee machine) [facility], [NON-STAFF] - As Needed Francisco Gray PAC [PHYSICIAN MANAGER CONVENTION] - 2 Weeks Patient Instructions/Handouts: *Surgery [facility] - (Adv Ortho) Arthroscopic Knee Post-Op Instructions, *Surgery [facility] - On-Q Pain Pump Discharge Instructions Activity/Diet/Wound Care/Special Instructions: Weightbearing as tolerated left leg with walker. CPM as prescribed. Follow-up 2 weeks. Keep incision clean and dry. Xarelto as prescribed. Discharge Disposition: HOME SELF-CARE
[2020-12-26 14:35] VITALS: BP 103/59; PULSE 62; TEMP 97.8
== END 2020-12-26 15:45 | disposition home or self-care (01) ==
LOC: OR 06:15 → 4SSUR 10:30 → OR 12-26 15:45
PROVIDERS: ATTEND Orthopaedic Surgery
DX: M17.12 Unilateral primary osteoarthritis, left knee (principal); M25.762 Osteophyte, left knee; G89.29 Other chronic pain; M54.5 Low back pain; E78.00 Pure hypercholesterolemia, unspecified; N40.0 Benign prostatic hyperplasia without lower urinary tract symptoms; H40.9 Unspecified glaucoma; G40.909 Epilepsy, unspecified, not intractable, without status epilepticus; M35.3 Polymyalgia rheumatica; E78.5 Hyperlipidemia, unspecified; Z88.2 Allergy status to sulfonamides; Z82.49 Family history of ischemic heart disease and other diseases of the circulatory system; Z87.891 Personal history of nicotine dependence; Z98.890 Other specified postprocedural states; Z98.41 Cataract extraction status, right eye; Z98.42 Cataract extraction status, left eye; Z79.899 Other long term (current) drug therapy
CPT/HCPCS: 97116; 97110; 97161; 64448; 76942; 80053; 85025; 88300; 73560; 27447; C1776; J2250; J1100; J0690 ×2; J2405; J3010; J2795

== ENCOUNTER 2021-03-05 06:09 | Day surgery (SDC) | payer MEDICARE ==
[2021-02-28 14:24] VITALS: BMI 23.1
[2021-03-05 06:35] VITALS: RESP 16; TEMP 98.1
[2021-03-05] MEDS ORDERED: IOPAMIDOL M200 10 ML VIAL ONE (07:02)
[2021-03-05] MEDS ORDERED: DEXAMETHASONE SOD PHOSPHATE 10 MG/ML 1 ML VIAL ONE (07:02)
[2021-03-05 07:36] VITALS: BP 125/86; PULSE 55
--- NOTE | 2021-03-05 09:47 | P.PCN ---
Date of Procedure: 03/05/21 Description of Procedure: REOPERATIVE DIAGNOSIS: Lumbar radiculopathy. POSTOPERATIVE DIAGNOSIS: Lumbar radiculopathy. PROCEDURE: 1) left L4-L5, and L5-S1 Transforaminal epidural steroid injection under fluoroscopic guidance, 2) Epidurogram SURGEON: Lisa Nugent DIALER: None ANESTHESIA: Local , and IV sedation: None EBL: None. Specimen removed: None Fluoroscopic image: Saved to electronic medical records PROCEDURE INDICATION: The patient with continued lumbar pain with radiculopathy, and intervertebral disc disease without myelopathy that has failed to respond to adequate conservative management. Came here for repeat procedure. PROCEDURE DESCRIPTION: The patient was seen and identified in the preoperative area. Risks, benefits, complications, and alternatives were discussed with the patient. The patient agreed to proceed with the procedure and signed the consent. Vital signs were stable. Patient was taken to the OR and time out was completed. The patient was placed in the prone position on procedure table and a pillow was placed under the abdomen to reduce lumbar lordosis. The lumbosacral area was prepped with ChloraPrep 1 and draped in the usual sterile fashion. Critical pause was taken. Vital signs were closely monitored during the procedure. Using 20 degree ipsilateral oblique fluoroscopy, the chin of the Hai dog of L4 and L5 was identified, and the skin and deeper tissues just below was localized with 1% lidocaine. 22-guage 5-inch spinal needles were used for the procedure. The needles were guided by fluoroscopy just underneath the chin of the Hai dog of L4 and L5. Under AP fluoroscopy, the needles were advanced to the 6 o'clock position of the L4 and L5 pedicles respectively. After negative aspiration of CSF and blood and with no paresthesias, 1 mL of Isovue-200 contrast dye was injected at each level with excellent anterior epidural spread and outlining of the L4 and L5 nerve roots. Each site then underwent injection of 3 mL of block solution. Block solution contained 10 mg of dexamethasone, and 5 mL of normal saline preservative-free. Needle was removed intact, skin was cleansed, and bandages were applied. COMPLICATIONS: None. DISPOSITION : The patient was placed in a supine position and transferred to the recovery area in a stable condition for observation and was discharged from the recovery room after meeting discharge criteria. Home discharge instructions given to the patient by the staff. The patient was reexamined prior to discharge. The patient will schedule follow-up in the clinic in 4 weeks' duration.
--- NOTE | 2021-03-05 10:41 | FL ---
EXAMINATION TYPE: FL guided pain mgmt statistic DATE OF EXAM: 03/05/2021 FLUOROSCOPY Fluoroscopy time of 4 seconds was used during lumbar epidural steroid injection. 2 image/s document/ s the procedure.
== END 2021-03-05 07:53 | disposition home or self-care (01) ==
LOC: ORPAIN 06:09
DX: M54.16 Radiculopathy, lumbar region (principal); Z88.2 Allergy status to sulfonamides
CPT/HCPCS: 62323; 64483; 64484; J1100; Q9966

== ENCOUNTER → 2021-04-03 | Outpatient (CLI) | payer MEDICARE ==
[2021-04-03 09:05] VITALS: BP 130/80; PULSE 69; RESP 16; TEMP 97.7
--- NOTE | 2021-04-03 09:21 | P.PN ---
Subjective Progress Note Date: 04/03/21 Adi is a pleasant 80-year-old gentleman presenting today for follow-up after having left-sided L4 5 and L5-S1 transforaminal epidural steroid injections. He had those done about one month ago. He is experiencing greater than 90% pain relief. He reports he still having minimal pain in left knee, he is 3 months postoperative from a left total knee replacement. His activities have significantly improved since having the epidural injections. He's had those injections done in the past about 8 or 9 months ago at a different facility. He transition his care to the [facility] pain clinic. When he does have the pain the pain as a sharp shooting pain down the back of the leg to below the knee. At t his time he feels occasional twinges of pain but nothing that sustained and is very pleased with the outcomes. He has followed up with Dr. Palacios's and recommended he has these injections as needed moving forward. He does not recommend any surgical procedure at this time. Review of Systems: Denies any New chest pain, short of breath, Nausea/vomitting, abdominal pain, bowel or bladder incontinence, or any overt new neurologic symptoms in the upper or lower extremities outside of what is noted in the HPI Objective - Vital Signs Vital signs: Vital Signs Temp 97.7 F 04/03/21 09:02 Pulse 69 04/03/21 09:02 Resp 16 04/03/21 09:02 BP 130/80 04/03/21 09:02 Pulse Ox 94 L 04/03/21 09:02 - Exam General: Awake and alert oriented 3 no distress Respiratory exam: No audible wheezing no accessory muscle usage Cardiovascular exam: regular rate, palpable bilateral pulses, no lower extremity edema Abdominal exam: No distention nontender to palpation Cervical spine: Normal alignment, Spurling's negative, facet loading negative, Auto Customize Painter strength is 5/5, oconnor negative Lumbar spine: There is loss of lumbar lordosis, atrophy of the paraspinal and gluteal muscles. He is slightly forward flexed body position. Straight leg raise is negative today. There is slight pain with extension lumbar spine causing pain down the left leg. Left knee surgical scar is healed well. Minimal tenderness to palpation over the lateral compartment of the knee. Neuro exam: Normal sensation in bilateral upper extremities, deep tendon reflexes are 2+ bilateral upper extremities. Normal sensation in bilateral lower extremities. Deep tendon reflexes are 2+ in lower extremities (besides left patella due to surgical scarring) Psych exam: Cooperative, appropriate mood Assessment and Plan Assessment: #1 lumbar radiculopathy #2 left knee pain Plan: At this point the patient is doing very well. He has had 2 injections over the last 12-15 months with very good relief. He understands that he may need to repeat this injection at some point. If he needs it repeated sometime he will give us a call and schedule the injection since she's had very good relief. His a greater than 50% relief for greater than 6 months. The previous injection was done greater than 6 months ago and the last injection we performed for him was in February 2021. When he does have them Injection he would like to have it with sedation. I have spent 26 minutes on patient care today. The time was used to review the medical records including relevant urine studies and Prescription history (MAPs), review of the available imaging, evaluation and examination of the patient, coordination of care with the medical staff and if applicable referring physicians, as well as creation of the medical record. Maps were checked and appropriate, opioid start talking form is on file and updated, urine drug screens of been appropriate and have been reviewed.
== END ==
LOC: PNWHC3 08:51
PROVIDERS: ATTEND Hospitalist
DX: M54.16 Radiculopathy, lumbar region (principal); M25.562 Pain in left knee; Z87.891 Personal history of nicotine dependence
CPT/HCPCS: 99211

== ENCOUNTER → 2021-09-02 | Outpatient (CLI) | payer MEDICARE ==
[2021-09-02 07:45] VITALS: BP 155/92; PULSE 71; RESP 18; TEMP 97.8
--- NOTE | 2021-09-02 08:05 | P.PN ---
Subjective Progress Note Date: 09/02/21 Follow visit for this 81 years old male with a chronic history of low back pain with radiation to the left lower extremity he is diagnosed with lumbar radiculopathy, lumbar foraminal stenosis, lumbar bulging disc disease, lumbar spondylosis with lumbar facet arthropathy, 6 months ago we have none left side transforaminal epidural steroid injection at L4 5, L5-S1, get excellent pain relief until recently when he started having the same symptoms ,(neck pain with radiation to the left lower extremity ), continue to use Motrin when necessary, his currently doing home exercise, his been doing that over the last few months, he denies any motor or sensory deficits he denies any fever or night sweats and there is no change in the bowel movement or urination Objective - Vital Signs Vital signs: Vital Signs Temp 97.8 F 09/02/21 07:37 Pulse 71 09/02/21 07:37 Resp 18 09/02/21 07:37 BP 155/92 09/02/21 07:37 Pulse Ox 99 09/02/21 07:37 - Exam Physical Examinations : -Constitutiona : Cooperative , not in acute distress . -HEENT : nech : supple , no Lymphadenopathy , normal thyroid size . : eyes : no ptosis , no icterus, no photophobia . - neurologic : Cranial nerve II to XII intact , no focal neurological deffecit . -psychatric : alert , oriented X 3 , appropriate affect , intact judgment and insight . -Lymphatic : no Lymphadenopathy . - musculoskeltal : Lumber spine moter stegnth lower extremities ,thigh and legs 5/5 Right side , 5/5 Left side Assessment and Plan Plan: Assessment and plan=1-lumbar radiculopathy. 2-lumbar degenerative disc disease. 3-lumbar foraminal stenosis. 4-lumbar spondylosis with lumbar facet arthropathy. he had excellent pain relief after left-sided transforaminal epidural steroid injection at L4 5 and L5-S1. he Could benefit from repeat same injections . She will continue to use Motrin as prescribed by his primary care And he will continue to do home exercise. - PQRS measures = - Patient's medications are documented in the chart. -Tobacco use is negative and counseling.Given. -Patient's has not received pneumococcal vaccine. -Advanced care planning discussed, patient not eligible. -Opiate contract not signed. -Pain positive and follow-up visit/procedure is scheduled. -Patient's blood pressure measured [ 155/92 ] , and documented in the record ,and patient will follow up with the primary care. -Patient's weight was measured and body mass index within the normal limits and counseling was done. and patient instructed to follow-up with the primary care physician. -Patient was not identified as an unhealthy alcohol user Time with Patient: Less than 30
== END | disposition home or self-care (01) ==
LOC: PNWHC3 07:28
PROVIDERS: ATTEND Specialist
DX: M48.061 Spinal stenosis, lumbar region without neurogenic claudication (principal); M47.26 Other spondylosis with radiculopathy, lumbar region; M46.96 Unspecified inflammatory spondylopathy, lumbar region
CPT/HCPCS: 99211

== ENCOUNTER → 2024-08-23 | Outpatient (CLI) | payer MEDICARE ==
--- NOTE | 2024-08-23 11:00 | US ---
EXAMINATION TYPE: US arterial LE single level DATE OF EXAM: 08/23/2024 8:55 AM CLINICAL INDICATION: Male, 84 years old with history of I73.9 PAD; no symptoms per patient History of: Smoker: previous 50 years ago Hypertension: y Diabetic: n Hyperlipidemia: n TIA/CVA: n Previous Vascular Surgery: n CAD: n VA: n Vascular Ulcers: n Claudication: n Gangrene: n Doppler Waveforms: Right: Multiphasic Left: Multiphasic Right Brachial Pressure: 113 Left Brachial Pressure: 105 Ankle-Brachial Indices: Right: 1.3 Left: 1.3 (Vessel hardening > 1.4; Normal 0.9 - 1.4, Moderate 0.7 - 0.9, Severe 0.5-0.7) IMPRESSION: Normal bilateral [facility], , 08/23/2024 10:58 AM
== END | disposition home or self-care (01) ==
LOC: RADUSWWP 08:37
PROVIDERS: ATTEND Family Medicine
DX: I73.9 Peripheral vascular disease, unspecified
CPT/HCPCS: 93922